=== PATIENT | female | born 1995 | race African-American/Black ===

== ENCOUNTER 2025-03-15 07:42 | Emergency (ER) | payer OTHER, SELFPAY ==
[2025-03-15 07:44] VITALS: BP 115/80
--- NOTE | 2025-03-15 09:11 | ED.GENMED ---
History of Present Illness
General
Chief Complaint: Breast Problem
Source: patient
Exam Limitations: none
Time Seen by Provider: 03/15/25 08:55
History of Present Illness
History of Present Illness:
See MDM
Past History
Past History
ED Past Medical History: Asthma
ED Past Surgical History: None
Social History
Tobacco: Non-smoker
Alcohol: Occasional
Personal: Single
Living: with family
Phy Exam
Physical Exam
Physical Exam:
See MDM
Course
Orders/Labs/Results
Orders:
Orders
03/15/25 09:08
HCG, Urine Qualitative Screen Urgent
Test Result ONCE
Vital Signs
Initial and Last Documented VS:
Initial Vital Signs
Temp Pulse Resp BP Pulse Ox
98.5 F 74 20 115/80 98
03/15/25 07:44 03/15/25 07:44 03/15/25 07:44 03/15/25 07:44 03/15/25 07:44
Last Documented Vital Signs
Temp Pulse Resp BP Pulse Ox
98.5 F 74 20 115/80 98
03/15/25 07:44 03/15/25 07:44 03/15/25 07:44 03/15/25 07:44 03/15/25 07:44
MDM/Problems Addressed
Differential Diagnosis Includes:
HPI and MDM Narrative:
29-year-old female presenting for evaluation of right breast tenderness. Over the past few days, patient noted a lump in her right breast. She denies any recent viral illness. She denies a family history of breast cancer and she denies any fever
or nipple discharge.
On exam, patient is well-appearing and nontoxic. Nurse Shayy came and collective bargaining specialist of breast exam. There is a questionable subcentimeter mobile lump in the 5 o'clock position of the right breast. There is no skin changes or nipple discharge noted
Physical exam
General: Well appearing and non-toxic
HEENT: protecting airway
Neck: appears supple
CV: No evidence of cyanosis
Chest: Breast exam performed with nurse collective bargaining specialist Shayy. There is questionable mobile subcentimeter lump in the 5 o'clock position of right nipple. No nipple discharge. No skin changes
Resp: No accessory muscle use
Abd: Non-distended
Extremities: No deformities
Neuro: alert
Psych: Normal affect
Skin: Intact
Problems Addressed including Acute and Chronic Conditions affecting care:
1. Breast pain
Acuity: acute
Prognosis: stable
Details: I do not appreciate a significantly sized nodule that the patient feels. No emergent imaging required from the emergency department. No flulike illness or fevers or skin changes to suggest abscess. Will have patient follow-up with PROBATION OFFICER.
Updates
Case discussed with PROBATION OFFICER who is happy to follow-up in the outpatient setting. Wanted to leave before giving urinalysis. She understands that I cannot rule out but she states she is currently menstruating. Will give follow-up for PROBATION OFFICER and
PCP
Differential Diagnosis (but not limited to): Lymph node, mass
Testing considered: Breast ultrasound but this is better suited in the outpatient setting
Drug therapy (if applicable): OTC meds, please see d/c instruction regarding Rx drugs
Amount and/or Complexity of Data Reviewed
Clinical info obtained from: Patient
External data reviewed: N/A
Labs I independently reviewed (but not limited to): N/A
Radiology: N/A
Pulse Ox: not hypoxic
EKG independently reviewed: N/A
Conservation Officer: N/A
Critical Care: N/A
Risk of Complication:
Social Determinants of health: Good social support
Discussed with other providers: PROBATION OFFICER
Escalation of Care includes Admit/Obs: After being observed in the Emergency Department, pt stable for discharge.
Occasional wrong word or 'sound a like' substitutions may have occurred due to the inherent limitations of voice recognition software. Read the chart carefully and recognize, using context, where substitutions have occurred.
*Critical Care Note
Total Time (30-74mins, 75-104mins- exclusive of procedures): Not Applicable
ED Attending Note
-
Portions of this chart may have been created with voice recognition software.� Occasional wrong word or��sound alike� substitutions may have occurred due to the inherent limitations of voice recognition software.
Discharge Plan
Departure
Patient Disposition: Home (Routine Discharge)
Date of Disposition: 03/15/25
Time of Disposition: 10:15
Patient with high blood pressure during this ER visit?: No
Discharge Problem:
Acute breast pain
Prescriptions:
No Action
pyridoxine (vitamin B6) 25 mg tablet
25 mg PO QIDPRN PRN (Reason: nausea) Qty: 30 0RF
Referrals:
[facility] [Provider Group]
Kavitha Amaya, DO [Active] -
NONE,* [Family Provider] -
Activity Restrictions/Additional Instructions:
Please return for any worsening symptoms.
You may return at any time if you have further concerns.
Please follow up with the primary care office.
Please call the gynecology office. Please let them know that you were seen in the emergency department and there is the possibility of a breast lump. Please let them know that I spoke to the on-call log inspector and they want you to be seen at
first available appointment.
Thank you for choosing [facility].
Interventions
Interventions:
*Risk Screen - Suicide Last Done: 03/15/25 07:44
*General Assessment Last Done: 03/15/25 07:44
*Neglect/Abuse Screening Last Done: 03/15/25 07:44
Discharge Date and Time
Print Language: SLOVENIAN
== END 2025-03-15 10:36 | disposition home or self-care (01) ==
LOC: EMR 07:42
PROVIDERS: EMERGENCY PHYSICIAN Student in an Organized Health Care Education/Training Program
DX: N64.4 Mastodynia (principal); J45.909 Unspecified asthma, uncomplicated; Z88.1 Allergy status to other antibiotic agents; Z88.0 Allergy status to penicillin
CPT/HCPCS: 99282

== ENCOUNTER 2025-04-16 22:43 | Emergency (ER) | payer OTHER, SELFPAY ==
[2025-04-16 22:45] VITALS: BP 133/89
[2025-04-16 23:02] LABS: % Basophils 0.4 % (0-2); % Eosinophils 1.9 % (0-6); % Immature Granulocytes 0.2 % (0-0.5); % Lymphocytes 35.2 % (20.5-51.1); % Monocytes 7.1 % (1.7-9.3); % Neutrophils 55.2 % (42.2-75.2); Absolute Eosinophils 0.1 10^3/uL (0-0.7); Absolute Lymphocytes 1.6 10^3/uL (1.2-3.4); Absolute Monocytes 0.3 10^3/uL (0.1-0.6); Absolute Neutrophils 2.6 10^3/uL (1.4-6.5); Hematocrit 37.6 % (37.0-47.0); Hemoglobin 13.5 g/dL (12.0-16.0); Mean Corp Hgb Conc. 35.9 g/dL (33.0-37.0); Mean Corpuscular Hgb 31.7 pg (27.0-31.0); Mean Corpuscular Volume 88.3 fL (81.0-99.0); Mean Platelet Volume 10.4 fL (7.4-10.4); Nucleated Red Blood Cells % 0 %; Platelet Count 204 10^3/uL (130-400); Red Blood Cell Count 4.26 10^6/uL (4.20-5.40); Red Cell Dist. Width 11.8 % (11.5-14.5); White Blood Cell Count 4.7 10^3/uL (4.8-10.8)
[2025-04-16 23:35] LABS: Beta HCG Quantitative 114.35 mIU/ml
--- NOTE | 2025-04-17 01:59 | ED.GENMED ---
History of Present Illness
General
Chief Complaint: Problems
Source: patient
Time Seen by Provider: 04/17/25 01:43
History of Present Illness
History of Present Illness:
29-year-old female presents emergency department with complaints of very light vaginal bleeding and lower abdominal cramping that started earlier tonight. She states that she is very early in her fourth . She denies further bleeding. She
denies fever, chills, chest pain, shortness of breath, or other complaints. Patient's Rh is noted to be positive here. Patient is G4, P3. No other complaints.
Past History
Past History
ED Past Medical History: Asthma
ED Past Surgical History: None
Social History
Tobacco: Non-smoker
Alcohol: Occasional
Drug: None
Personal: Single
Living: with family
Phy Exam
Physical Exam
Physical Exam:
GENERAL: Alert , in no apparent distress
EYE: pupils equal and reactive
NECK: Supple, no significant adenopathy.
ENT: o/p clr, mmm.
CARDIAC: Regular rate and rhythm .
LUNGS: Clear breath sounds bilaterally, no acute respiratory distress, no wheezes/rales/rhonchi
ABDOMEN: Soft, without focal tenderness, no r/g, no cvat
NEUROLOGICAL: Alert and oriented, no focal neuro deficits
SKIN: Warm and dry, skin intact.
MUSCULOSKELETAL: No edema, well perfused.
PSYCH: Normal and appropriate interaction.
Course
Orders/Labs/Results
Orders:
Orders
04/16/25 22:49
Test Result ONCE
04/16/25 22:55
Type+Screen Urgent
Beta HCG Quantitative Urgent
Complete Blood Count/With Diff Urgent
04/17/25 01:42
US 1st Trimester Urgent
Comment:
Reason For Exam: bleeding
Abnormal Lab Results
04/16/25
22:55
WBC 4.7 L 10^3/uL
(4.8-10.8)
MCH 31.7 H pg
(27.0-31.0)
04/16/25 22:55
Vital Signs
Initial and Last Documented VS:
Initial Vital Signs
Temp Pulse Resp BP Pulse Ox
98 F 76 16 133/89 100
04/16/25 22:45 04/16/25 22:45 04/16/25 22:45 04/16/25 22:45 04/16/25 22:45
Last Documented Vital Signs
Temp Pulse Resp BP Pulse Ox
98 F 77 16 114/77 98
04/16/25 22:45 04/17/25 03:40 04/17/25 03:40 04/17/25 03:40 04/17/25 03:40
Information
Weeks gestation: N/A
Location: N/A
*Critical Care Note
Total Time (30-74mins, 75-104mins- exclusive of procedures): Not Applicable
Update Note
Update Note:
Patient presents to the Emergency Department with __vaginal bleeding
Number and Complexity of Problems Addressed at the Encounter
� Chronic conditions affecting care:
� Acute Exacerbation and/or Progression of Chronic Illness:
� Differential Diagnosis includes: But not limited to impending miscarriage, normal , ectopic, etc. etc.
Amount and/or Complexity of Data to be Reviewed and Analyzed
� I performed an independent evaluation of and my interpretation is:
EKG:
CT:
Xrays:
Laboratory Studies: Rh+, beta 114
Other: Ultrasound vision report no evidence of IUP normal endometrial stripe findings may represent early IUP miscarriage or ectopic recommend follow-up with serial beta hCG and ultrasound as clinically indicated
normal-sized ovaries no suspicious free fluid no adnexal masses
� Review of other/old records reveals:
� Clinical information was obtained by an independent historian:
� Prescriptions/Medications Considered but not given:
� Further testing considered but not performed:
Risk of Complications and/or Morbidity or Mortality of Patient Management
� Social determinants of health affecting care:
� Discussion with other providers (PCP, Hospitalists, Consultants, etc):
� Escalation of care including admission/observation vs risk of discharge considered: Patient very early in with mild vaginal bleeding. Will require close follow-up with TAXICAB DISPATCHER doctor within the next 48 hours for
repeat beta and exam. Discussed with patient importance of this follow-up and reasons return to the ER.
ED Attending Note
-
Portions of this chart may have been created with voice recognition software.� Occasional wrong word or��sound alike� substitutions may have occurred due to the inherent limitations of voice recognition software.
Discharge Plan
Departure
Patient Disposition: Home (Routine Discharge)
Date of Disposition: 04/17/25
Time of Disposition: 03:32
Patient with high blood pressure during this ER visit?: Yes
Condition: Good
Discharge Problem:
, threatened
Instructions: Threatened Miscarriage (DC), BLOOD PRESSURE
Prescriptions:
No Action
No Current Medications
0
Referrals:
NONE,* [Family Provider] -
Activity Restrictions/Additional Instructions:
IT IS VERY IMPORTANT THAT YOU SEE YOUR TAXICAB DISPATCHER DOCTOR ON FRIDAY. YOU WILL NEED REPEAT BLOOD WORK WELL EVALUATION TO HELP FURTHER DEFINE THE CAUSE OF YOUR BLEEDING TODAY. IF YOU DEVELOP FEVER, CHILLS, SEVERE PAIN, INCREASING BLEEDING,
DIZZINESS, OR OTHER WORRISOME SIGNS, PLEASE RETURN TO THE ER IMMEDIATELY!
Interventions
Interventions:
*Risk Screen - Suicide Last Done: 04/16/25 22:45
*General Assessment Last Done: 04/17/25 01:14
*Neglect/Abuse Screening Last Done: 04/16/25 22:45
*ED- Fall Risk Assessment Last Done: 04/17/25 01:14
*ED COVID-19 Vaccine History Last Done: 04/17/25 01:14
*Nursing Disposition Last Done: 04/17/25 03:40
ED-Female Genitourinary Assessment Last Done: 04/17/25 01:14
Discharge Date and Time
Discharge Date/Time: 04/17/25 03:40
Print Language: GUYANESE
[2025-04-17 03:40] VITALS: BP 114/77
== END 2025-04-17 03:40 | disposition home or self-care (01) ==
LOC: EMR 22:43
PROVIDERS: Student in an Organized Health Care Education/Training Program; EMERGENCY PHYSICIAN Emergency Medicine
DX: O03.9 Complete or unspecified spontaneous abortion without complication (principal); R10.30 Lower abdominal pain, unspecified; R03.0 Elevated blood-pressure reading, without diagnosis of hypertension; J45.909 Unspecified asthma, uncomplicated; Z88.1 Allergy status to other antibiotic agents; Z88.0 Allergy status to penicillin
CPT/HCPCS: 99284; 76801; 84702; 85025; 86850; 86900; 86901